=== PATIENT | female | born 1970 | race Caucasian/White ===

== ENCOUNTER 2024-03-15 14:42 | Inpatient (IN) | payer MEDICARE, MEDICAID, SELFPAY ==
[2024-03-15] VITALS (8 sets, daily range): BP systolic 84–141; BP diastolic 62–129; PULSE 69–81; RESP 14–18; TEMP 35.8–36.8; O2SAT 96–100; BMI 27.2
[2024-03-15 15:31] LABS: Absolute Lymphocyte Count 0.85 X10^3/uL (0.83-4.51); Absolute Neutrophil Count 3.4 X10^3/uL (2.0-7.7); Basophil# 0.04 X10^3/uL; Basophil% 0.8 % (0-1); Eosinophil# 0.18 X10^3/uL; Eosinophils% 3.6 % (0-5); Hematocrit 39.9 % (37-47); Hemoglobin 13.6 g/dL (12.0-15.0); Lymphocyte # 0.85 X10^3/ul (0.83-4.51); Lymphocyte % 17.1 % (19-41); Mean Corp Hgb Conc 34.1 g/dL (32-36); Mean Corpuscular Hgb 35.2 pg (27.0-32.0); Mean Corpuscular Volume 103.4 fL (81-99); Mean Platelet Vol. 9.5 fl (6.2-12.0); Monocyte# 0.54 X10^3/uL; Monocyte% 10.8 % (0-10); NRBC Flagged by Analyzer 0 % (0-5); Neutrophil # 3.35 X10^3/uL (2.7-7.7); Neutrophil % 67.3 % (47-70); Platelet Count 114 K/mm3 (150-450); RBC Distribution Width CV 12.8 % (11.6-14.6); RBC Distribution Width SD 48.2 fl (35.1-43.9); Red Blood Count 3.86 M/mm3 (4.2-5.4)
[2024-03-15 15:43] LABS: International Normalized Ratio 1.2; Prothrombin Time (Protime)PT. 14.9 SECONDS (11.7-14.9)
[2024-03-15 15:55] LABS: ALB/GLOB Ratio 1.1 RATIO (0.9-2.4); AST(SGOT) 39 U/L (15-37); Alanine Aminotransfer ALT/SGPT 30 U/L (13-56); Albumin, Serum 3.7 g/dL (3.2-5.0); Alkaline Phosphatase 113 U/L (45-117); Anion Gap 11 (5-15); BUN 8 mg/dL (7-18); BUN/Creat Ratio 6.9 RATIO (10-20); Calcium,Total 8.9 mg/dL (8.5-10.1); Chloride 102 mmol/L (98-107); Creatinine, Serum 1.16 mg/dL (0.55-1.02); EST Glomerular Filtration Rate 52 mL/min (>60); Est Glom Filt Rate - Afr Amer 63 mL/min (>60); Globulin 3.3 g/dL (2.2-4.2); Glucose 115 mg/dL (74-106); Potassium 3.3 mmol/L (3.5-5.1); Sodium Level 136 mmol/L (136-145)
--- NOTE | 2024-03-15 16:03 | EX.ED.SAOD ---
HPI History of Present Illness Chief Complaint: Substance Abuse Informant: patient and family (x2) Narrative Narrative: 53-year-old female here with her family asking for detox from alcohol. Family states has been diagnosed with cirrhosis, she did curb her drinking some but refuses to stop. At this time she is having 2 high alcohol beverages on average per day, usually at nighttime but her last drink was already this morning. She does not wake up in the mornings in withdrawal. She denies any physical symptoms right now or recent illness. She denies any suicidality. No jaundice. She has had a paracentesis once but it was last year. She also has small cell lung cancer the family states is unstageable. She is currently in remission and made it to the 5-year leon. Just recently, they do not know what her prognosis is at all. They suggested that she has remote metastases such as brain that she had radiation for. [facility] Medical History (Updated 03/15/24 @ 16:[address] Mode Tellez MD) HLD (hyperlipidemia) HTN (hypertension) Anxiety and depression Hypothyroidism Small cell carcinoma of right lung COPD (chronic obstructive pulmonary disease) Liver cirrhosis Home Medications ?Medication ?Instructions ?Recorded ?Last Taken ?Type bupropion HCl 150 mg tablet,12 hr 150 mg PO BID 03/15/24 Unknown History sustained-release fluticasone propionate 50 1 spray intranasal BID 03/15/24 Unknown History mcg/actuation nasal spray,suspension furosemide 20 mg tablet 20 mg PO DAILY 03/15/24 Unknown History lactulose 10 gram/15 mL oral 15 ml PO TID 03/15/24 Unknown History solution levothyroxine 75 mcg tablet 75 mcg PO DAILY 03/15/24 Unknown History magnesium 200 mg tablet 400 mg PO DAILY 03/15/24 Unknown History melatonin 10 mg capsule 10 mg PO DAILY 03/15/24 Unknown History potassium chloride 10 mEq 20 meq PO BID 03/15/24 Unknown History tablet,extended release propranolol 20 mg tablet 20 mg PO DAILY 03/15/24 Unknown History rifaximin 550 mg tablet (Xifaxan) 550 mg PO BID 03/15/24 Unknown History sertraline 100 mg tablet 200 mg PO Q24H 03/15/24 Unknown History spironolactone 50 mg tablet 50 mg PO DAILY 03/15/24 Unknown History thiamine HCl (vitamin B1) 100 mg 100 mg PO DAILY 03/15/24 Unknown History tablet umeclidinium 62.5 mcg/actuation 1 inh inhalation DAILY 03/15/24 Unknown History blister powder for inhalation (Incruse Ellipta) Allergy/AdvReac Type Severity Reaction Status Date / Time No Known Allergies Allergy Verified 03/15/24 14:44 Surgical History (Updated 03/15/24 @ 14:57 by Orin Alexandre) Hx of tonsillectomy H/O: hysterectomy Social History Smoking Status: Former smoker ROS ROS ED Constitutional Constitutional ED: Denies chills or fever(s) Eyes Eyes: Denies change in vision or diplopia ENT ENT ED: Denies rhinorrhea or sore throat Cardiovascular Cardiovascular: Denies chest pain or palpitations Respiratory/Chest Respiratory/Chest: Denies cough or dyspnea Gastrointestinal Gastrointestinal: Denies abdominal pain, diarrhea, nausea or vomiting Genitourinary Genitourinary ED: Denies dysuria or hematuria Musculoskeletal Musculoskeletal: Denies back pain or neck pain Integumentary Denies abscess or rash Neurologic Neurologic: Denies headache(s), paresthesias or weakness Psychiatric Psychiatric: Denies suicidal ideation or suicidal thoughts EXAM Physical Exam Const Vital Signs: 03/15/24 14:44 03/15/24 14:44 Temperature 96.5 F L Temperature Source Temporal Pulse Rate 76 76 Respiratory Rate 14 14 Blood Pressure 141/129 H 141/129 H Blood Pressure Mean 133 133 Pulse Ox 100 100 Oxygen Delivery Method Room Air Room Air Positive well nourished and well developed General Appearance ED: well developed and NAD HEENT Reports moist mucous membranes normocephalic and atraumatic Eyes PERRL and EOMs intact bilaterally General Eye ED: Negative for scleral icterus Neck full ROM and supple Lymph Lymphatic: no lymphadenopathy noted Chest Wall inspection of chest normal and palpation of chest normal Resp normal respiratory effort and clear to auscultation bilaterally Cardio regular rate, regular rhythm and no murmurs GI non-tender and non-distended Auscultation: normoactive bowel sounds Palpation: soft Back/Spine no CVA tenderness General Back: other FROM Extremity normal to inspection General Extremety ED: Negative for edema, pulses abnormal or tenderness General Extremity: Negative for edema or pulses abnormal Neuro oriented x3, CN's II-XII intact bilaterally and no sensory deficits noted Sensorium / Orientation: awake and alert Motor Exam: strength 5/5 throughout Psych mental status grossly normal and thought process normal Skin no rashes or lesions noted and no wounds MDM MDM MDM Narrative Medical decision making narrative: Labs reviewed, her INR is within normal limits and she does not have hyper bilirubinemia. She denies any recent hemorrhoids, rectal bleeding, hematemesis to suggest sequela of cirrhosis and she is not jaundiced. Discussed with hospitalist who is amenable to admitting for detox. Lab Data Attestation: I reviewed the patient's lab results. Labs: Laboratory Results - last 24 hr 03/15/24 15:15 WBC 5.0 RBC 3.86 L Hgb 13.6 Hct 39.9 MCV 103.4 H MCH 35.2 H MCHC 34.1 RDW Std Deviation 48.2 H RDW Coeff of Deny 12.8 Plt Count 114 L MPV 9.5 Immature Gran % (Auto) 0.400 Neut % (Auto) 67.3 Lymph % (Auto) 17.1 L [place] % (Auto) 10.8 H Eos % (Auto) 3.6 Baso % (Auto) 0.8 Absolute Neuts (auto) 3.4 Absolute Lymphs (auto) 0.85 Nucleated RBC % 0 PT 14.9 INR 1.2 Sodium 136 Potassium 3.3 L Chloride 102 Carbon Dioxide 23.0 Anion Gap 11 BUN 8 Creatinine 1.16 H Est GFR (MDRD) Af Amer 63 Est GFR (MDRD) Non-Af 52 L BUN/Creatinine Ratio 6.9 L Glucose 115 H Calcium 8.9 Total Bilirubin 0.70 AST 39 H ALT 30 Alkaline Phosphatase 113 Total Protein 7.0 Albumin 3.7 Globulin 3.3 Albumin/Globulin Ratio 1.1 Ethyl Alcohol 107.0 Management Discussion w/another healthcare provider: Hospitalist Discharge Plan Triage Chief Complaint: Substance Abuse ED Provider: Mode Tellez Dx/Rx/DC Orders Clinical Impression: Alcohol dependence, Alcoholic cirrhosis of liver Prescriptions: No Action bupropion HCl 150 mg tablet sustained-release 12 hr 150 mg PO BID levothyroxine 75 mcg tablet 75 mcg PO DAILY furosemide 20 mg tablet 20 mg PO DAILY fluticasone propionate 50 mcg/actuation spray,suspension 1 spray INTRANASAL BID lactulose 10 gram/15 mL solution 15 ml PO TID magnesium 200 mg tablet 400 mg PO DAILY melatonin 10 mg capsule 10 mg PO DAILY potassium chloride 10 mEq tablet extended release 20 meq PO BID propranolol 20 mg tablet 20 mg PO DAILY spironolactone 50 mg tablet 50 mg PO DAILY Xifaxan 550 mg tablet 550 mg PO BID thiamine HCl (vitamin B1) 100 mg tablet 100 mg PO DAILY sertraline 100 mg tablet 200 mg PO Q24H Incruse Ellipta 62.5 mcg/actuation blister with device 1 inh inhalation DAILY Primary Care Provider: Care Physician,No Primary Referrals: Care Physician,No Primary [Primary Care Provider] - Print Language: Telugu Disposition Disposition: Acute Care Hospital [facility]
--- NOTE | 2024-03-15 16:06 | PCM.HP.STD ---
HPI - General General Date of Admission: 03/15/24 Date of Service: 03/15/24 Chief Complaint: EtOH detoxification request HPI Narrative The patient is a 53 y/o F w/ PMHx: Anxiety and Depression, Former tobacco use, COPD with allergic rhinitis, Hx Small cell carcinoma R lung, Hypothyroidism, EtOH abuse w/ associated Alcoholic liver cirrhosis (the equivalent of 4-5 beers daily) who presents to the [facility] on 03/15/24 w/ for alcohol detoxification with last alcohol intake prior to ED arrival with currently no withdrawal symptoms reported per patient however she is interested in attaining sober status. Workup in the ED included T96.5, heart rate 76, BP 141/129, respiratory rate 14, 100% on room air, CBC with WBC 5.0, hemoglobin 13.6, platelet 114 without marked shift, pending CMP, of alcohol level, UDS and coags upon evaluation of patient. Patient does admit to persistent anxiety and depression and ongoing alcohol use secondary to psychological difficulty dealing with the of both of her parents. [facility] Medical History HLD (hyperlipidemia) HTN (hypertension) Anxiety and depression Hypothyroidism Small cell carcinoma of right lung COPD (chronic obstructive pulmonary disease) Liver cirrhosis Home Medications ?Medication ?Instructions ?Recorded ?Last Taken ?Type bupropion HCl 150 mg tablet,12 hr 150 mg PO BID mood 03/15/24 03/15/24 History sustained-release fluticasone propionate 50 1 spray intranasal BID allergies 03/15/24 03/15/24 History mcg/actuation nasal spray,suspension furosemide 20 mg tablet 20 mg PO DAILY water pills 03/15/24 03/15/24 History lactulose 10 gram/15 mL oral 15 ml PO TID constipation 03/15/24 03/15/24 History solution levothyroxine 75 mcg tablet 75 mcg PO DAILY thyroid 03/15/24 03/15/24 History magnesium 200 mg tablet 400 mg PO DAILY supplement 03/15/24 03/15/24 History melatonin 10 mg capsule 10 mg PO DAILY sleep 03/15/24 03/15/24 History pantoprazole 40 mg tablet,delayed 40 mg PO DAILY acid reflux 03/15/24 03/15/24 History release potassium chloride 10 mEq 20 meq PO BID supplement 03/15/24 03/15/24 History tablet,extended release propranolol 20 mg tablet 20 mg PO DAILY blood pressure 03/15/24 03/15/24 History rifaximin 550 mg tablet (Xifaxan) 550 mg PO BID diarrhea 03/15/24 03/15/24 History sertraline 100 mg tablet 200 mg PO Q24H mood 03/15/24 03/15/24 History spironolactone 50 mg tablet 50 mg PO DAILY fluid retention 03/15/24 03/15/24 History thiamine HCl (vitamin B1) 100 mg 100 mg PO DAILY supplement 03/15/24 03/15/24 History tablet umeclidinium 62.5 mcg/actuation 1 inh inhalation DAILY shortness 03/15/24 03/15/24 History blister powder for inhalation of breathe (Incruse Ellipta) Allergy/AdvReac Type Severity Reaction Status Date / Time No Known Allergies Allergy Verified 03/15/24 14:44 Family History (Updated 03/15/24 @ 16:[address] Sunni Dutton MD) Mother Diabetes Metastatic melanoma to head and neck Father Walking corpse syndrome Surgical History Hx of tonsillectomy H/O: hysterectomy Social History (Updated 03/15/24 @ 16:[address] Sunni Dutton MD) household members: family Smoking Status: Former smoker how long ago did patient quit smoking: Quit 5 yrs prior, smoked 1 ppd from teen until quit. alcohol intake: current alcohol intake frequency: 3 or more drinks per day details: Equivalent 4-5 beers daily, decreased from prior. substance use type: other details: Medical cannabis, smokes. ROS ROS Narrative Admission Review of Systems: CONSTITUTIONAL: No weight loss, fever, chills, + weakness or fatigue. HEENT: Eyes: No visual loss, blurred vision, double vision or yellow sclerae. Ears, Nose, Throat: No hearing loss, sneezing, congestion, runny nose or sore throat. SKIN: No rash or itching, lesions, wounds. CARDIOVASCULAR: No chest pain, chest pressure or chest discomfort, palpitations, edema, orthopnea, syncopal events. RESPIRATORY: No shortness of breath, cough or sputum, wheezing, hemoptysis. GASTROINTESTINAL: No anorexia, nausea, vomiting or diarrhea, abdominal pain, melena, BRBPR. GENITOURINARY: No dysuria, frequency, urgency or retention. NEUROLOGICAL: No headache, dizziness, syncope, paralysis, ataxia, numbness or tingling in the extremities, focal weakness, change in bowel or bladder control, seizure. MUSCULOSKELETAL: + muscle, back pain, joint pain or stiffness. HEMATOLOGIC: No anemia. + Easy bleeding/bruising. LYMPHATICS: No enlarged nodes. No history of splenectomy. PSYCHIATRIC: + History of anxiety and depression. ENDOCRINOLOGIC: No reports of sweating, cold or heat intolerance. No polyuria or polydipsia. ALLERGIES: + History of allergic rhinitis. Vital Signs Vital Signs Vital Signs: 03/15/24 14:44 03/15/24 14:44 Temperature 96.5 F L Temperature Source Temporal Pulse Rate 76 76 Respiratory Rate 14 14 Blood Pressure 141/129 H 141/129 H Blood Pressure Mean 133 133 Pulse Ox 100 100 Oxygen Delivery Method Room Air Room Air Physical Exam Narrative Physical Examination: General: Awake, alert, oriented x 3 and cooperative, seated upright in the ED bed in no apparent distress, no active withdrawal. Skin: Normal color, normal turgor, no icterus, no cyanosis except occasional staged ecchymoses. HEENT: AT/NC, EOMI, PERRLA, MMM, no carotid bruits or JVD noted. Lungs: CTA bilaterally, moderate effort, mild decrease BL bases, no rales, ronchi or wheezing. Heart: Regular rate and rhythm; no gallop, rub audible. Abdomen: Soft, NTTP, ND, mildly hyperactive BS, + HM. Extremities: No cyanosis, clubbing, or edema. Neurological: Patient awake, alert, oriented as noted, cognitive function intact; pupils equally reactive to light and accommodation, cranial nerves grossly normal, moving all 4 extremities, no focal deficits, strength mildly to moderately globally decreased which is baseline, no reported tactile disturbances, no evidence of any tremors at this time. Psychiatric: Affect appears fatigued, tearful during discussions, does have underlying anxiety and depression. Results Lab / Micro Data 03/15/24 15:15 03/15/24 15:15 Labs: Laboratory Results - last 24 hr 03/15/24 15:15: WBC 5.0, RBC 3.86 L, Hgb 13.6, Hct 39.9, MCV 103.4 H, MCH 35.2 H, MCHC 34.1, RDW Std Deviation 48.2 H, RDW Coeff of Deny 12.8, Plt Count 114 L, MPV 9.5, Immature Gran % (Auto) 0.400, Neut % (Auto) 67.3, Lymph % (Auto) 17.1 L, [place] % (Auto) 10.8 H, Eos % (Auto) 3.6, Baso % (Auto) 0.8, Absolute Neuts (auto) 3.4, Absolute Lymphs (auto) 0.85, Nucleated RBC % 0, PT 14.9, INR 1.2, Sodium 136, Potassium 3.3 L, Chloride 102, Carbon Dioxide 23.0, Anion Gap 11, BUN 8, Creatinine 1.16 H, Est GFR (MDRD) Af Amer 63, Est GFR (MDRD) Non-Af 52 L, BUN/Creatinine Ratio 6.9 L, Glucose 115 H, Calcium 8.9, Total Bilirubin 0.70, AST 39 H, ALT 30, Alkaline Phosphatase 113, Total Protein 7.0, Albumin 3.7, Globulin 3.3, Albumin/Globulin Ratio 1.1, Ethyl Alcohol 107.0 Assessment & Plan Assessment/Plan (1) Desire for detoxification: PLAN: Plan The patient is a 53 y/o F w/ PMHx: Anxiety and Depression, Former tobacco use, COPD with allergic rhinitis, Hx Small cell carcinoma R lung, Hypothyroidism, EtOH abuse w/ associated Alcoholic liver cirrhosis (2-3 drinks per day with high etoh %) who presents to the [facility] on 03/15/24 w/ for alcohol detoxification with last alcohol intake prior to ED arrival. #1. Acute EtOH Withdrawal: Will admit to MI, routine labs obtained in the ED upon presentation as noted. Given interest in sobriety, will initiate and continue on protocol with taper course of Phenobarbital, as needed gabapentin, Catapres, Bentyl, Vistaril, IV fluids, IV antiemetics, Tylenol as needed for pain. Will consult Case management for assistance for transition to next level of rehabilitation care. Mag, phos pending. Maintain on CIWA protocol concurrently. #2. Alcoholic cirrhosis, compensated with thrombocytopenia, suspected chronic: Encourage patient to continue with plan as noted #1, continue patient home rifaximin, lactulose, propranolol, Lasix and spironolactone home regimen, encourage continued outpatient follow-up with gastroenterology as previously arranged. #3. Chronic COPD with allergic rhinitis: Will temporally hold home inhaler in the interim transition to ATC budesonide therapy, PRN albuterol, HOB, IS parameters, continue home fluticasone regimen. #4. Hx Small cell carcinoma R lung: Status post radiation and chemotherapy, considered in remission, encourage continued outpatient follow-up as previously arranged. #5. Hypertension: Continue home regimen including Lasix, spironolactone, propranolol, PRN hydralazine. #6. Hyperlipidemia: Not on regimen with underlying cirrhotic liver disease is noted. #7. Anxiety and depression: We will continue patient home sertraline and bupropion regimen. #8. Hypothyroidism: We will continue patient on levothyroxine regimen. #9. Former tobacco Abuse: Encourage continued tobacco cessation. #10. DVT prophylaxis: Low risk for type of admission. Charges/Coding Visit Charges Inpatient E&M: 15412 Init Hosp L2
[2024-03-15 16:42] LABS: Magnesium 2.1 mg/dL (1.6-2.6); Phosphorus 2.4 mg/dL (2.5-4.9)
[2024-03-15 16:59] LABS: Amphetamine Urine VISTA NEGATIVE (<1000 ng/mL); Barbiturate Urine VISTA NEGATIVE (< 200 ng/mL); Benzodiazepine Urine VISTA NEGATIVE (< 200 ng/mL); Cocaine Urine VISTA NEGATIVE (< 300 ng/mL); Ecstacy Urine VISTA POSITIVE (< 500 ng/mL); Methadone Urine VISTA NEGATIVE (< 300 ng/mL); PCP Urine VISTA NEGATIVE (< 25 ng/mL); THC Urine VISTA POSITIVE (< 50 ng/mL); Vista UDS pH Range 6
--- NOTE | 2024-03-15 17:12 | ED.RN ---
pt. daughter took home ptVy kern per patient request
[2024-03-15] MEDS: Phenobarbital 32.4 MG Tablet PO ×2 (17:46→22:27)
[2024-03-15] MEDS: Potassium Chloride Oral Tablet 20 MEQ 40 MEQ PO (17:46)
[2024-03-15] MEDS: Budesonide Respules 0.5 MG/2 ML AMPUL.NEB. INHALATION (19:56)
[2024-03-15] MEDS: 0.9% Saline Lock 10 ML Syringe IV (22:26)
[2024-03-15] MEDS: Fluticasone 0.05% 1 SPRAY NASAL.SRY NASAL (22:29)
[2024-03-15] MEDS: buPROPion (SR) 150 MG Tablet.SA PO (22:31)
[2024-03-15] MEDS: Lactulose 20 GM/30 ML UDC 10 GM PO (22:32)
[2024-03-15] MEDS: rifAXIMin 550 MG Tablet PO (22:32)
[2024-03-15] MEDS: traZODone 100 MG Tablet PO (22:38)
[2024-03-16] VITALS (9 sets, daily range): BP systolic 96–125; BP diastolic 66–79; PULSE 65–77; RESP 16–18; TEMP 36.2–36.8; O2SAT 93–100
[2024-03-16] MEDS: Phenobarbital 32.4 MG Tablet PO ×6 (02:06→22:07)
[2024-03-16] MEDS: Levothyroxine 75 MCG Tablet PO (06:23)
[2024-03-16] MEDS: Lactulose 20 GM/30 ML UDC 10 GM PO ×3 (06:24→22:07)
[2024-03-16] MEDS: hydrOXYzine PAM 25 MG Capsule 50 MG PO (06:25)
[2024-03-16 06:56] LABS: AST(SGOT) 37 U/L (15-37); Alanine Aminotransfer ALT/SGPT 27 U/L (13-56); Alkaline Phosphatase 102 U/L (45-117); Anion Gap 4 (5-15); BUN 7 mg/dL (7-18); BUN/Creat Ratio 6.4 RATIO (10-20); Calcium,Total 8.4 mg/dL (8.5-10.1); Chloride 105 mmol/L (98-107); Creatinine, Serum 1.09 mg/dL (0.55-1.02); EST Glomerular Filtration Rate 56 mL/min (>60); Est Glom Filt Rate - Afr Amer 67 mL/min (>60); Estimated Creatinine Clearance 57.37 ml/min; Globulin 2.9 g/dL (2.2-4.2); Glucose 89 mg/dL (74-106); Potassium 4.2 mmol/L (3.5-5.1); Protein, Total 5.9 g/dL (6.4-8.2); Sodium Level 136 mmol/L (136-145)
[2024-03-16] MEDS: Ensure Plus High Protein 120 ML LIQUID PO ×2 (08:47→11:54)
[2024-03-16] MEDS: Fluticasone 0.05% 1 SPRAY NASAL.SRY NASAL ×2 (08:48→22:08)
[2024-03-16] MEDS: rifAXIMin 550 MG Tablet PO ×2 (08:48→22:08)
[2024-03-16] MEDS: Multivitamins,Ther W-Minerals Tablet 1 TABLET PO (08:48)
[2024-03-16] MEDS: Folic Acid 1 MG Tablet PO (08:49)
[2024-03-16] MEDS: buPROPion (SR) 150 MG Tablet.SA PO ×2 (08:49→22:08)
[2024-03-16] MEDS: Potassium Chloride Oral Tablet 20 MEQ PO ×2 (08:49→16:29)
[2024-03-16] MEDS: Magnesium Chloride 64 MG Delay Rel.Tablet 128 MG PO (08:49)
[2024-03-16] MEDS: Thiamine Hydrochloride 100 MG Tablet PO (08:52)
[2024-03-16] MEDS: Sertraline 100 MG Tablet 200 MG PO (08:52)
[2024-03-16] MEDS: Budesonide Respules 0.5 MG/2 ML AMPUL.NEB. INHALATION ×2 (11:19→19:55)
--- NOTE | 2024-03-16 11:53 | PN_ITS ---
Subjective Subjective Patient seen and examined. She had no complaints. She is being managed for acute alcohol withdrawal. She is on alcohol drawl protocol with phenobarbital. She has remained hemodynamically stable. Objective Data Objective Data Vital Signs: Vital Signs Temp Pulse Resp BP Pulse Ox O2 Del Method 97.9 F 77 18 96/79 100 Room Air 03/16/24 08:36 03/16/24 11:19 03/16/24 11:19 03/16/24 08:36 03/16/24 08:36 03/16/24 08:36 Oxygen Delivery Method Room Air Weight: 158 lb 9.6 oz Body Mass Index (BMI) 27.2 Intake & Output: Intake and Output for Last 24 Hours 03/14/24 03/15/24 03/16/24 23:59 23:59 23:59 Intake Total 300 / 300 400 / 400 Balance 300 / 300 400 / 400 Lab / Micro Data 03/15/24 15:15 03/16/24 06:05 Labs: Laboratory Results - last 24 hr 03/15/24 15:15: WBC 5.0, RBC 3.86 L, Hgb 13.6, Hct 39.9, MCV 103.4 H, MCH 35.2 H , MCHC 34.1, RDW Std Deviation 48.2 H, RDW Coeff of Deny 12.8, Plt Count 114 L, MPV 9.5, Immature Gran % (Auto) 0.400, Neut % (Auto) 67.3, Lymph % (Auto) 17.1 L , [place] % (Auto) 10.8 H, Eos % (Auto) 3.6, Baso % (Auto) 0.8, Absolute Neuts (auto) 3.4, Absolute Lymphs (auto) 0.85, Nucleated RBC % 0, PT 14.9, INR 1.2, Sodium 136, Potassium 3.3 L, Chloride 102, Carbon Dioxide 23.0, Anion Gap 11, BUN 8, Creatinine 1.16 H, Est GFR (MDRD) Af Amer 63, Est GFR (MDRD) Non-Af 52 L, BUN/Creatinine Ratio 6.9 L, Glucose 115 H, Calcium 8.9, Phosphorus 2.4 L, Magnesium 2.1, Total Bilirubin 0.70, AST 39 H, ALT 30, Alkaline Phosphatase 113, Total Protein 7.0, Albumin 3.7, Globulin 3.3, Albumin/Globulin Ratio 1.1, Ethyl Alcohol 107.0 03/15/24 16:17: Urine Opiates Screen NEGATIVE, Urine Methadone Screen NEGATIVE, Ur Barbiturates Screen NEGATIVE, Ur Phencyclidine Scrn NEGATIVE, Ur Amphetamines Screen NEGATIVE, MDMA (Ecstasy) Screen POSITIVE H, U Benzodiazepines Scrn NEGATIVE, Urine Cocaine Screen NEGATIVE, U Cannabinoids Screen POSITIVE H, Ur Drug Screen Comment 03/16/24 06:05: Sodium 136, Potassium 4.2, Chloride 105, Carbon Dioxide 27.0, A nion Gap 4 L, BUN 7, Creatinine 1.09 H, Estim Creat Clear Calc 57.37, Est GFR (MDRD) Af Amer 67, Est GFR (MDRD) Non-Af 56 L, BUN/Creatinine Ratio 6.4 L, Glucose 89, Calcium 8.4 L, Total Bilirubin 0.50, AST 37, ALT 27, Alkaline Phosphatase 102, Total Protein 5.9 L, Albumin 3.0 L, Globulin 2.9, Albumin/Globulin Ratio 1.0 Physical Exam Const alert, oriented x3, no apparent distress and well nourished General Appearance: cooperative HEENT normocephalic, head/scalp atraumatic, moist oral mucous membranes and oropharynx normal Eyes PERRL and EOMs intact bilaterally Neck no lymphadenopathy and supple Lymph Lymphatic: no lymphadenopathy noted and no lymphedema noted Resp normal respiratory effort, normal air movement and clear to auscultation bilaterally Cardio regular rate, regular rhythm, S1 normal heart sound, S2 normal heart sound and no murmurs GI normal to inspection, nondistended, normoactive bowel sounds, soft to palpation, non-tender and non-distended Extremity normal capillary refill, no clubbing, cyanosis or edema and no calf tenderness General Extremity: no tenderness to palpation of joints or extremities Skin General Skin Exam: no breakdown Neuro CN's II-XII intact bilaterally, no focal motor deficits, no sensory deficits noted and deep tendon reflexes 2+ bilaterally Motor Exam: strength 5/5 throughout and general weakness Psych thought process normal and cooperative Appearance: appropriate Assessment & Plan Assessment/Plan (1) Desire for detoxification: (2) Alcohol dependence: PLAN: Plan #Acute alcohol withdrawal * patient on alcohol withdrawal protocol with phenbarbital * on thiamine, folic acid and multivites. * adjunctive meds for symptomatic relief. * #Alcoholic liver cirrhosis * on rifaximin, lactulose, propranolol, lasix and spironolactone. * to follow up with GI on outpatient basis. Counseled to quit smoking. * * #THrombocytopenia: platelets are 114. Likely chronic, due to chronic alcohol abuse and cirrhosis. Will monitor #COPD with allergic rhinitis: on breathing treatment with bronchodilators. #History of small cell right lung carcinoma: s/p radiation and chemotherapy. #Hypertension; on lasix, spironolactone and propranolol. IV hydralazine prn #Hyperlipidemia: not on statin. Follow up with PCP on outpatient basis. #Anxiety and depression: on sertraline and bupropion #Hypothyroidism:on synthroid. #Nicotine dependence: counseled to quit. On nicotine patch prn DVT prophylaxis: low risk. Encourage ambulation. Charges/Coding Visit Charges Inpatient E&M: 29681 Subs Hosp L3
--- NOTE | 2024-03-16 14:20 | ADDICTION ---
This marketing copywriter met with PT to conduct ASAM, MSE, AUDIT, DUDIT assessments and to plan for d/c. PT A+Ox4 and participated actively. All assessments completed and placed in PT's chart. PT plans to f/u with [facility] for follow-up in patient treatment services on Monday. Pt's daughter will transport to treatment.
[2024-03-16] MEDS: 0.9% Saline Lock 10 ML Syringe IV (22:06)
[2024-03-16] MEDS: MELATONIN 10 MG TABLET PO (22:08)
[2024-03-17] VITALS (10 sets, daily range): BP systolic 94–133; BP diastolic 61–82; PULSE 64–80; RESP 16–20; TEMP 36.4–36.9; O2SAT 97–100
[2024-03-17] MEDS: Phenobarbital 32.4 MG Tablet PO ×4 (02:40→21:52)
[2024-03-17] MEDS: Lactulose 20 GM/30 ML UDC 10 GM PO ×3 (06:37→21:51)
[2024-03-17] MEDS: Levothyroxine 75 MCG Tablet PO (06:44)
[2024-03-17] MEDS: Budesonide Respules 0.5 MG/2 ML AMPUL.NEB. INHALATION (07:35)
[2024-03-17] MEDS: rifAXIMin 550 MG Tablet PO ×2 (08:18→21:52)
[2024-03-17] MEDS: Magnesium Chloride 64 MG Delay Rel.Tablet 128 MG PO (08:18)
[2024-03-17] MEDS: Ensure Plus High Protein 120 ML LIQUID PO ×2 (08:18→11:23)
[2024-03-17] MEDS: Fluticasone 0.05% 1 SPRAY NASAL.SRY NASAL ×2 (08:19→21:51)
[2024-03-17] MEDS: Thiamine Hydrochloride 100 MG Tablet PO (08:19)
[2024-03-17] MEDS: Sertraline 100 MG Tablet 200 MG PO (08:20)
[2024-03-17] MEDS: Folic Acid 1 MG Tablet PO (08:20)
[2024-03-17] MEDS: Multivitamins,Ther W-Minerals Tablet 1 TABLET PO (08:21)
[2024-03-17] MEDS: Potassium Chloride Oral Tablet 20 MEQ PO ×2 (08:31→17:18)
[2024-03-17] MEDS: Furosemide 20 MG Tablet PO (08:32)
[2024-03-17] MEDS: buPROPion (SR) 150 MG Tablet.SA PO ×2 (08:33→21:52)
--- NOTE | 2024-03-17 09:39 | PN_ITS ---
Subjective Subjective Patient seen and examined. She had no active complaints. She had an uneventful night and review of systems otherwise negative. Her blood pressure medications were held yesterday because her blood pressure was running low. However in light of her cirrhosis her blood pressure will likely run low. Objective Data Objective Data Vital Signs: Vital Signs Temp Pulse Resp BP Pulse Ox O2 Del Method 97.5 F L 74 18 109/61 99 Room Air 03/17/24 08:30 03/17/24 08:30 03/17/24 08:30 03/17/24 08:30 03/17/24 08:30 03/17/24 08:30 Oxygen Delivery Method Room Air Weight: 158 lb 9.6 oz Body Mass Index (BMI) 27.2 Intake & Output: Intake and Output for Last 24 Hours 03/15/24 03/16/24 03/17/24 23:59 23:59 23:59 Intake Total 300 / 300 600 / 600 300 / 300 Balance 300 / 300 600 / 600 300 / 300 Lab / Micro Data 03/15/24 15:15 03/16/24 06:05 Physical Exam Const alert, oriented x3, no apparent distress and well nourished General Appearance: cooperative HEENT normocephalic, head/scalp atraumatic, moist oral mucous membranes and oropharynx normal Eyes PERRL and EOMs intact bilaterally Neck no lymphadenopathy and supple Lymph Lymphatic: no lymphadenopathy noted and no lymphedema noted Resp normal respiratory effort, normal air movement and clear to auscultation bilaterally Cardio regular rate, regular rhythm, S1 normal heart sound, S2 normal heart sound and no murmurs GI normal to inspection, nondistended, normoactive bowel sounds, soft to palpation, non-tender and non-distended Extremity normal capillary refill, no clubbing, cyanosis or edema and no calf tenderness General Extremity: no tenderness to palpation of joints or extremities Skin General Skin Exam: no breakdown Neuro CN's II-XII intact bilaterally, no focal motor deficits, no sensory deficits noted and deep tendon reflexes 2+ bilaterally Motor Exam: strength 5/5 throughout and general weakness Psych thought process normal and cooperative Appearance: appropriate Assessment & Plan Assessment/Plan (1) Desire for detoxification: (2) Alcohol dependence: PLAN: Plan #Acute alcohol withdrawal * patient on alcohol withdrawal protocol with phenbarbital * on thiamine, folic acid and multivites. * adjunctive meds for symptomatic relief. * #Alcoholic liver cirrhosis * on rifaximin, lactulose, propranolol, lasix and spironolactone. * to follow up with GI on outpatient basis. Counseled to quit smoking. * * #THrombocytopenia: platelets are 114. Likely chronic, due to chronic alcohol abuse and cirrhosis. Will monitor #COPD with allergic rhinitis: on breathing treatment with bronchodilators. #History of small cell right lung carcinoma: s/p radiation and chemotherapy. #Hypertension; on lasix, spironolactone and propranolol. IV hydralazine prn #Hyperlipidemia: not on statin. Follow up with PCP on outpatient basis. #Anxiety and depression: on sertraline and bupropion #Hypothyroidism:on synthroid. #Nicotine dependence: counseled to quit. On nicotine patch prn DVT prophylaxis: low risk. Encourage ambulation. Charges/Coding Visit Charges Inpatient E&M: 93372 Subs Hosp L2
--- NOTE | 2024-03-17 10:17 | NURSING ---
This nurse was called into pt's room by charge nurse, CUSTOMS EXAMINER found pt on the bathroom floor, she had instructed her to call for assistance, not to get up on her own. pt denies bumping her head or any other part of her body. She was assisted back to bed x 3 assist and walker, was unable to put weight on her rt leg. pt rambles quietly to herself at times, and her answers to staff are not cohesive. States she is at [facility], and it is Monday, and states it is February and the season is spring. Will notify Dr. Mcbride.
--- NOTE | 2024-03-17 14:31 | RAD_ITS ---
EXAM: XR RIGHT HIP WITH PELVIS WHEN PERFORMED, 2 OR 3 VIEWS CLINICAL INDICATION: unsteady gait and pain -- Call results to Dr Mcbride TECHNIQUE: Two or three views of the right hip with pelvis when performed. COMPARISON: No relevant prior studies available. FINDINGS: BONES/JOINTS: Unremarkable. No displaced fracture. No destructive or sclerotic lesions. Note that overlapping bowel shadows may however obscure fine detail. Sacroiliac joint is unremarkable. No widening of the pubic symphysis. The articular structures are unremarkable. SOFT TISSUES: Unremarkable. No soft tissue swelling or gas. RAD/HIP, UNI W/ Pelvis 2-3 Views IMPRESSION: No evidence of displaced pelvic or hip fracture. Electronically Signed: Dann Crisostomo MD at 15:27 EDT Reading Location ID and State: [facility] / [place] , Service support ,
--- NOTE | 2024-03-17 14:31 | RAD_ITS ---
EXAM: XR RIGHT TIBIA AND FIBULA, 2 VIEWS CLINICAL INDICATION: unsteady and pain -- call Dr. Mcbride with the results please. TECHNIQUE: Frontal and lateral views of the right tibia and fibula. COMPARISON: No relevant prior studies available. FINDINGS: BONES/JOINTS: Unremarkable. No acute fracture. No subluxation. Normal alignment. Preservation of the joint space. No sclerotic or destructive changes observed. SOFT TISSUES: Unremarkable. No soft tissue swelling or gas. No radiopaque foreign body. RAD/Tibia & Fibula 2 Views IMPRESSION: Negative right tibia and fibula x-rays. Electronically Signed: Dann Crisostomo MD at 15:23 EDT ,
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
[2024-03-17] MEDS: MELATONIN 10 MG TABLET PO (21:51)
[2024-03-17] MEDS: 0.9% Saline Lock 10 ML Syringe IV (21:55)
[2024-03-18 03:06] VITALS: BP 122/82; PULSE 82; RESP 16; TEMP 36.9; O2SAT 100
[2024-03-18] MEDS: Phenobarbital 32.4 MG Tablet PO ×4 (03:11→22:55)
[2024-03-18] MEDS: Levothyroxine 75 MCG Tablet PO (06:37)
[2024-03-18] MEDS: Lactulose 20 GM/30 ML UDC 10 GM PO ×3 (06:37→22:55)
[2024-03-18 06:55] VITALS: PULSE 80; RESP 16; O2SAT 91
[2024-03-18] MEDS: Budesonide Respules 0.5 MG/2 ML AMPUL.NEB. INHALATION (06:55)
[2024-03-18 09:06] VITALS: BP 108/70; PULSE 80; RESP 18; TEMP 37.3; O2SAT 96
[2024-03-18] MEDS: hydrOXYzine PAM 25 MG Capsule 50 MG PO (09:35)
[2024-03-18] MEDS: Acetaminophen 325 MG Tablet 650 MG PO (09:35)
[2024-03-18] MEDS: 0.9% Saline Lock 10 ML Syringe IV (09:35)
[2024-03-18] MEDS: Potassium Chloride Oral Tablet 20 MEQ PO ×2 (09:36→18:25)
[2024-03-18] MEDS: Folic Acid 1 MG Tablet PO (09:36)
[2024-03-18] MEDS: Thiamine Hydrochloride 100 MG Tablet PO (09:37)
[2024-03-18] MEDS: Fluticasone 0.05% 1 SPRAY NASAL.SRY NASAL ×2 (09:37→22:57)
[2024-03-18] MEDS: Multivitamins,Ther W-Minerals Tablet 1 TABLET PO (09:37)
[2024-03-18] MEDS: Spironolactone 50 MG Tablet PO (09:37)
[2024-03-18] MEDS: Furosemide 20 MG Tablet PO (09:38)
[2024-03-18] MEDS: Sertraline 100 MG Tablet 200 MG PO (09:38)
[2024-03-18] MEDS: Propranolol 10 MG Tablet 20 MG PO (09:38)
[2024-03-18] MEDS: Magnesium Chloride 64 MG Delay Rel.Tablet 128 MG PO (09:38)
[2024-03-18] MEDS: rifAXIMin 550 MG Tablet PO ×2 (09:38→22:56)
[2024-03-18] MEDS: buPROPion (SR) 150 MG Tablet.SA PO ×2 (09:46→22:56)
--- NOTE | 2024-03-18 10:29 | DCINST_ITS ---
Discharge Instructions Diet Discharge Diet: Low fat / Low cholesterol Activity Discharge Activity: Return to Normal Activity Dressing / Incision Call your doctor if you observe: Fever of 101 or Higher, Shortness of breath, Dizziness, Fainting spells, Swelling in the ankles, Chest pain and Increased palpitations (irregular heartbeat) Follow Up Care Test Results: Test results from this visit will be discussed in further detail at your follow- up appointment, if applicable. Discharge Plan Admission Admit Date/Time: 03/15/24 16:08 Attending Provider: Sukhi Tang Primary Care Provider: Luisa Hansen Primary Consulting Providers: Sunni Dutton; Dejah Mcbride Discharge Orders/Prescriptions Prescriptions: New folic acid 1 mg Tablet 1 mg PO DAILYCM 30 Days Qty: 30 0RF Continued bupropion HCl 150 mg tablet sustained-release 12 hr 150 mg PO BID levothyroxine 75 mcg tablet 75 mcg PO DAILY furosemide 20 mg tablet 20 mg PO DAILY fluticasone propionate 50 mcg/actuation spray,suspension 1 spray INTRANASAL BID lactulose 10 gram/15 mL solution 15 ml PO TID magnesium 200 mg tablet 400 mg PO DAILY melatonin 10 mg capsule 10 mg PO DAILY potassium chloride 10 mEq tablet extended release 20 meq PO BID propranolol 20 mg tablet 20 mg PO DAILY spironolactone 50 mg tablet 50 mg PO DAILY Xifaxan 550 mg tablet 550 mg PO BID thiamine HCl (vitamin B1) 100 mg tablet 100 mg PO DAILY sertraline 100 mg tablet 200 mg PO Q24H Incruse Ellipta 62.5 mcg/actuation blister with device 1 inh inhalation DAILY pantoprazole 40 mg tablet,delayed release (DR/EC) 40 mg PO DAILY Referrals / Follow Up: Care Physician,No Primary [Primary Care Provider] - Disposition Disposition (needs filled in before D/C Order can be placed): Home, Self Care
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
--- NOTE | 2024-03-18 13:11 | DS.PCM_ITS ---
Providers Date of Admission: 03/15/24 Primary Care Physician: Luisa Primary Care Phys Reason For Visit: ETOH DETOXIFICATION Diagnosis Discharge Diagnosis (1) Desire for detoxification: Status: Acute (2) Alcohol dependence: Status: Acute Code(s): F10.20 - Alcohol dependence, uncomplicated Medications at Discharge Home Medications bupropion HCl 150 mg tablet,12 hr sustained-release 150 mg PO BID mood 03/15/24 fluticasone propionate 50 mcg/actuation nasal spray,suspension 1 spray intranasal BID allergies 03/15/24 furosemide 20 mg tablet 20 mg PO DAILY water pills 03/15/24 lactulose 10 gram/15 mL oral solution 15 ml PO TID constipation 03/15/24 levothyroxine 75 mcg tablet 75 mcg PO DAILY thyroid 03/15/24 magnesium 200 mg tablet 400 mg PO DAILY supplement 03/15/24 melatonin 10 mg capsule 10 mg PO DAILY sleep 03/15/24 pantoprazole 40 mg tablet,delayed release 40 mg PO DAILY acid reflux 03/15/24 potassium chloride 10 mEq tablet,extended release 20 meq PO BID supplement 03/15/24 propranolol 20 mg tablet 20 mg PO DAILY blood pressure 03/15/24 rifaximin 550 mg tablet (Xifaxan) 550 mg PO BID diarrhea 03/15/24 sertraline 100 mg tablet 200 mg PO Q24H mood 03/15/24 spironolactone 50 mg tablet 50 mg PO DAILY fluid retention 03/15/24 thiamine HCl (vitamin B1) 100 mg tablet 100 mg PO DAILY supplement 03/15/24 umeclidinium 62.5 mcg/actuation blister powder for inhalation (Incruse Ellipta) 1 inh inhalation DAILY shortness of breathe 03/15/24 folic acid 1 mg tablet 1 mg PO DAILYCM 30 days #30 tabs 03/18/24 Hospital Course Operations None Procedures None Summary of Care Provided Minutes Spent on Discharge: 33 Hospital Course: Per HPI: The patient is a 53 y/o F w/ PMHx: Anxiety and Depression, Former tobacco use, COPD with allergic rhinitis, Hx Small cell carcinoma R lung, Hypothyroidism, EtOH abuse w/ associated Alcoholic liver cirrhosis (the equivalent of 4-5 beers daily) who presents to the [facility] on 03[facility]24 w/ for alcohol detoxification with last alcohol intake prior to ED arrival with currently no withdrawal symptoms reported per patient however she is interested in attaining sober status. Workup in the ED included T96.5, heart rate 76, BP 141/129, respiratory rate 14, 100% on room air, CBC with WBC 5.0, hemoglobin 13.6, platelet 114 without marked shift, pending CMP, of alcohol level, UDS and coags upon evaluation of patient. Patient does admit to persistent anxiety and depression and ongoing alcohol use secondary to psychological difficulty dealing with the of both of her parents. Hospital Course: 1. Acute alcohol withdrawal with alcoholic liver cirrhosis?53-year-old female presented to the hospital requesting detox. At the time she was not having any withdrawal-like symptoms. She was started on the alcohol withdrawal protocol which she tolerated fairly well, she did have some somnolence due to medications however this resolved fairly quickly. She was continued on all of her home medications including Xifaxan, lactulose, propranolol, Lasix, Aldactone that she should be taking at home for her alcoholic liver cirrhosis. Her thrombocytopenia is chronic and she does have a history of small cell right lung cancer?status postradiation and chemotherapy that she will need outpatient follow-up for. I discussed with her the possibility for discharge today as she was set up [facility] [employer]. I discussed with her the possibility of discharge today as her CIWA scores were only up to versus staying another day to complete more of the detox protocol, she expressed understanding the risk benefits of going home and would like to go home today. 2. COPD, hypothyroidism, GERD, anxiety, depression, essential hypertension, hyperlipidemia are chronic medical conditions which complicate her care. Her home medications were continued where appropriate Physical Exam Narrative General: Alert, Oriented x3, Cooperative, No apparent distress HEENT: Atraumatic, PERRLA, EOMI, Normocephalic Oral: Moist Mucosa Neck: Supple, No JVD Lungs: Diminished, Normal air movement, No rhonchi, No wheeze, No rales Cardiovascular: Regular rate, Regular Rhythm, Normal S1, Normal S2, No murmurs Abdomen: Soft, Non Tender, Non-Distended, No Hepato-splenomegaly Extremities: No edema, Capillary Refill Less than 3 Seconds Skin: No rashes, No breakdown Musculoskeletal: No Tenderness to Palpation of Joints or Extremities Neurological: No focal neurological deficits, Motor Exam 5/5 strength throughout, Sensory exam intact to light touch and pain Psych/Mental Status: Normal Affect, Appropriate Weight / BMI Weight Weight: 158 lb 9.6 oz Body Mass Index (BMI) 27.2 ABG / Lab / Microbiology Data 03/15/24 15:15 03/16/24 06:05 Radiography Diagnostic Testing: Radiology Impression Hip/Pelvis X-Ray 03/17/24 14:31 IMPRESSION: No evidence of displaced pelvic or hip fracture. Electronically Signed: Dann Crisostomo MD at 15:27 EDT , Tibia/Fibula X-Ray 03/17/24 14:31 IMPRESSION: Negative right tibia and fibula x-rays. Electronically Signed: Dann Crisostomo MD at 15:23 EDT , D/C Instructions Discharge Diet: Low fat / Low cholesterol Call your doctor if you observe: Fever of 101 or Higher, Shortness of breath, Dizziness, Fainting spells, Swelling in the ankles, Chest pain and Increased palpitations (irregular heartbeat) Meaningful Use Info Meaningful Use Meaningful Use Diagnoses (Choose all that apply): None applicable Ischemic Stroke Statin Dosing Therapy Reference: STATIN DOSE THERAPY REFERENCE: * Patients > 75 years receive moderate or high dose statin therapy. * Patients 75 years or YOUNGER should receive HIGH intensity statin dose unless contraindicated. You will be required to document reason for non-treatment if statin daily dose does not meet guidelines. HIGH DOSE STATIN THERAPY DAILY Atorvastatin > than or = to 40 mg Rosuvastatin > than or = to 20 mg Amlodipine + Atorvastatin > than or = to 2.5/40 mg Ezetimibe + Simvastatin 10/80 mg Simvastatin 80mg Discharge Plan Admission Admit Date/Time: 03/15/24 16:08 Attending Provider: Sukhi Tang Primary Care Provider: Care Physician,No Primary Consulting Providers: Sunni Dutton; Dejah Mcbride Discharge Orders/Prescriptions Prescriptions: New folic acid 1 mg Tablet 1 mg PO DAILYCM 30 Days Qty: 30 0RF Continued bupropion HCl 150 mg tablet sustained-release 12 hr 150 mg PO BID levothyroxine 75 mcg tablet 75 mcg PO DAILY furosemide 20 mg tablet 20 mg PO DAILY fluticasone propionate 50 mcg/actuation spray,suspension 1 spray INTRANASAL BID lactulose 10 gram/15 mL solution 15 ml PO TID magnesium 200 mg tablet 400 mg PO DAILY melatonin 10 mg capsule 10 mg PO DAILY potassium chloride 10 mEq tablet extended release 20 meq PO BID propranolol 20 mg tablet 20 mg PO DAILY spironolactone 50 mg tablet 50 mg PO DAILY Xifaxan 550 mg tablet 550 mg PO BID thiamine HCl (vitamin B1) 100 mg tablet 100 mg PO DAILY sertraline 100 mg tablet 200 mg PO Q24H Incruse Ellipta 62.5 mcg/actuation blister with device 1 inh inhalation DAILY pantoprazole 40 mg tablet,delayed release (DR/EC) 40 mg PO DAILY Referrals / Follow Up: Care Physician,No Primary [Primary Care Provider] - Disposition Disposition (needs filled in before D/C Order can be placed): Home, Self Care Charges/Coding Visit Charges Inpatient E&M: 41564 Disch Hosp >30min
[2024-03-18 15:06] VITALS: BP 117/74; PULSE 78; RESP 16; TEMP 37.1; O2SAT 98
--- NOTE | 2024-03-18 18:11 | PN.HOSP_ITS ---
Subjective Subjective Doing well, initial plan was for discharge today to inpatient rehab however the inpatient rehab facility states that it was never set up despite having been set up over the weekend Objective Data Objective Data Vital Signs: Vital Signs Temp Pulse Resp BP Pulse Ox O2 Del Method 99.2 F H 80 18 108/70 96 Room Air 03/18/24 09:06 03/18/24 09:06 03/18/24 09:06 03/18/24 09:06 03/18/24 09:06 03/18/24 09:06 Oxygen Delivery Method Room Air Weight: 158 lb 9.6 oz Body Mass Index (BMI) 27.2 Intake & Output: Intake and Output for Last 24 Hours 03/17/24 03/18/24 03/19/24 03:59 03:59 03:59 Intake Total 600 / 600 400 / 400 Balance 600 / 600 400 / 400 Lab / Micro Data 03/15/24 15:15 03/16/24 06:05 Physical Exam Narrative General: Alert, Oriented x3, Cooperative, No apparent distress HEENT: Atraumatic, PERRLA, EOMI, Normocephalic Oral: Moist Mucosa Neck: Supple, No JVD Lungs: Diminished, Normal air movement, No rhonchi, No wheeze, No rales Cardiovascular: Regular rate, Regular Rhythm, Normal S1, Normal S2, No murmurs Abdomen: Soft, Non Tender, Non-Distended, No Hepato-splenomegaly Extremities: No edema, Capillary Refill Less than 3 Seconds Skin: No rashes, No breakdown Musculoskeletal: No Tenderness to Palpation of Joints or Extremities Neurological: No focal neurological deficits, Motor Exam 5/5 strength throughout, Sensory exam intact to light touch and pain Psych/Mental Status: Normal Affect, Appropriate Assessment & Plan Assessment/Plan (1) Desire for detoxification: (2) Alcohol dependence: PLAN: Plan #Acute alcohol withdrawal * patient on alcohol withdrawal protocol with phenbarbital * on thiamine, folic acid and multivites. * adjunctive meds for symptomatic relief. * Plan for inpatient discharge to rehab tomorrow #Alcoholic liver cirrhosis/chronic thrombocytopenia * on rifaximin, lactulose, propranolol, lasix and spironolactone. * to follow up with GI on outpatient basis. Counseled to quit smoking. #COPD with allergic rhinitis: on breathing treatment with bronchodilators. #History of small cell right lung carcinoma: s/p radiation and chemotherapy. #Hypertension; on lasix, spironolactone and propranolol. IV hydralazine prn #Hyperlipidemia: not on statin. Follow up with PCP on outpatient basis. #Anxiety and depression: on sertraline and bupropion #Hypothyroidism:on synthroid. #Nicotine dependence: counseled to quit. On nicotine patch prn DVT: Ambulation Charges/Coding Visit Charges Inpatient E&M: 22692 Subs Hosp L2
[2024-03-18 22:55] VITALS: BP 101/65; PULSE 72; RESP 16; TEMP 36.4; O2SAT 99
[2024-03-18] MEDS: MELATONIN 10 MG TABLET PO (22:56)
[2024-03-19] MEDS: Phenobarbital 32.4 MG Tablet PO ×4 (02:54→20:48)
[2024-03-19 03:04] VITALS: BP 101/67; PULSE 66; RESP 16; TEMP 36; O2SAT 97
[2024-03-19] MEDS: Lactulose 20 GM/30 ML UDC 10 GM PO ×3 (05:34→20:48)
[2024-03-19] MEDS: Levothyroxine 75 MCG Tablet PO (05:34)
--- NOTE | 2024-03-19 08:54 | PCM.PN.HOSP ---
Subjective Subjective No issues overnight, CIWA score 0 Objective Data Objective Data Vital Signs: Vital Signs Temp Pulse Resp BP Pulse Ox O2 Del Method 96.8 F L 66 16 101/67 97 Room Air 03/19/24 03:04 03/19/24 03:04 03/19/24 03:04 03/19/24 03:04 03/19/24 03:04 03/19/24 03:04 Oxygen Delivery Method Room Air Weight: 158 lb 9.6 oz Body Mass Index (BMI) 27.2 Intake & Output: Intake and Output for Last 24 Hours 03/18/24 03/19/24 03/20/24 03:59 03:59 03:59 Intake Total 400 / 400 1200 / 1200 Output Total 200 / 200 Balance 400 / 400 1000 / 1000 Lab / Micro Data 03/15/24 15:15 03/16/24 06:05 Physical Exam Narrative General: Alert, Oriented x3, Cooperative, No apparent distress HEENT: Atraumatic, PERRLA, EOMI, Normocephalic Oral: Moist Mucosa Neck: Supple, No JVD Lungs: Diminished, Normal air movement, No rhonchi, No wheeze, No rales Cardiovascular: Regular rate, Regular Rhythm, Normal S1, Normal S2, No murmurs Abdomen: Soft, Non Tender, Non-Distended, No Hepato-splenomegaly Extremities: No edema, Capillary Refill Less than 3 Seconds Skin: No rashes, No breakdown Musculoskeletal: No Tenderness to Palpation of Joints or Extremities Neurological: No focal neurological deficits, Motor Exam 5/5 strength throughout, Sensory exam intact to light touch and pain Psych/Mental Status: Normal Affect, Appropriate Assessment & Plan Assessment/Plan (1) Desire for detoxification: (2) Alcohol dependence: PLAN: Plan 1. Acute alcohol withdrawal with alcoholic liver cirrhosis and chronic thrombocytopenia/anxiety/depression ? Continue with the alcohol withdrawal protocol ? Will attempt to get into an inpatient rehab unsure what happened with the [facility] ?Will monitor thrombocytopenia ? Continue with her home cirrhotic medications 2. 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 Discussed tobacco cessation ? Continue with inhalers 3. Hypothyroidism ? Stable ? Continue with Synthroid DVT: Ambulation Charges/Coding Visit Charges Inpatient E&M: 70203 Subs Hosp L2
[2024-03-19 09:29] VITALS: BP 98/61; PULSE 78; RESP 16; TEMP 36.7; O2SAT 95
[2024-03-19] MEDS: Potassium Chloride Oral Tablet 20 MEQ PO ×2 (09:33→16:28)
[2024-03-19] MEDS: Folic Acid 1 MG Tablet PO (09:33)
[2024-03-19] MEDS: Magnesium Chloride 64 MG Delay Rel.Tablet 128 MG PO (09:33)
[2024-03-19] MEDS: Multivitamins,Ther W-Minerals Tablet 1 TABLET PO (09:34)
[2024-03-19] MEDS: Thiamine Hydrochloride 100 MG Tablet PO (09:34)
[2024-03-19] MEDS: rifAXIMin 550 MG Tablet PO ×2 (09:37→20:49)
[2024-03-19] MEDS: Fluticasone 0.05% 1 SPRAY NASAL.SRY NASAL ×2 (09:39→20:48)
[2024-03-19] MEDS: Sertraline 100 MG Tablet 200 MG PO (10:48)
[2024-03-19] MEDS: buPROPion (SR) 150 MG Tablet.SA PO ×2 (10:48→20:49)
--- NOTE | 2024-03-19 11:23 | CASEMGMT ---
Addendum entered by Shanti Wood 03/19/24 15:33: Social Work Pt's daughter called back she did not receive the SNF list, SW forwarded it again. Daughter aware of facilities in the area, asked for [facility] be sent [facility] [place] D/C capacity planning manager will send the referrals. SHANNON Schwartz Addendum entered by Shanti Wood 03/19/24 14:43: Social Work [facility] [place] cannot take pt. SW called daughter back, message left for additional choices. A list was emailed to daughter earlier today of SNFs from [facility]. SHANNON Schwartz Original Note: Social Work SW met w/pt in room in regard to prior level of function and anticipated discharge plan. Pt initially came in to be part of the [facility] program but is now not able to go to rehab for alcohol use as she is not walking well enough to do so. PCP: Dr. Crain in [place] Specialists: Pt sees a liver doctor, pt cannot remember the name at present. Pharmacy: [facility] in [place] Insurance: Medicare/Medicaid LNOK: Daughterdaly LW/POA: Pt does think she has completed these documents in the past Living arrangements/prior level of function: Pt lives home w/daughter Edith, one story home, a few steps in with a basement. Pt explains is normally able to ambulate w/a cane, daughter helps with cooking, cleaning, medications. Pt states daughter is the substitute bus driver, she does not drive. She states daughter helps a little with showering and dressing. DME: Pt uses a cane at baseline, has a shower chair as well. SW spoke w/pt about options at discharge. She is agreeable to SNF. She is not sure where she would want to go, she states is okay to call her daughter and ask her. SW called daughter Pamela. SW explained pt is not moving well and is going to need a halfway facility to get some physical therapy. Daughter agreeable to pt going a halfway facility for rehab. SW offered to email a list to her, and she is receptive. D/C capacity planning manager Berna will email daughter a list from [facility] of halfway facilities in network w/pt's insurance, in pt's preferred geographic area, and complete w/quality and resource use data. Daughter already aware of [facility] in [place] and would like a referral sent there. D/C capacity planner Berna will send the initial referral to [facility]. SW will follow up w/pt and daughter once we hear from of [place]. Plan: SNF, skilled, facility TBD. SHANNON Schwartz
--- NOTE | 2024-03-19 11:58 | CASEMGMT ---
Addendum entered by Berna Figueroa 03/19/24 14:44: [facility] declined referral. SW updated. Berna Figueroa DC Planning Asst. Original Note: Referral sent to [facility] via [facility]. Awaiting response. Mela Osman, GEOGRAPHIC INFORMATION SYSTEM SURVEYOR, ELECTROCARDIOGRAPH OPERATOR
--- NOTE | 2024-03-19 12:04 | CASEMGMT ---
Electronic Share Method: ? Discharge Planning A list of?SNF providers including quality and resource use data and consistent with the patient's preferred geographic region, medical needs, and insurance network were provided via email to patients daughter from the [employer] link. Berna Figueroa, Discharge Planning Asst.
[2024-03-19] MEDS: Ensure Plus High Protein 120 ML LIQUID PO ×2 (13:02→16:28)
[2024-03-19 14:35] VITALS: BP 102/79; PULSE 72; RESP 16; TEMP 36.5; O2SAT 99
--- NOTE | 2024-03-19 15:39 | CASEMGMT ---
Addendum entered by Berna Figueroa 03/20/24 14:37: [facility] declined. SW updated. Berna Figueroa DC Planning Asst. Addendum entered by Berna Figueroa 03/20/24 10:31: Patient has been accepted by [facility]. Awaiting response from [facility]. SW updated. Berna Figueroa DC Planning Asst. Addendum entered by Berna Figueroa 03/20/24 08:53: [facility] declined referral. Berna Figueroa DC Planning Asst. Addendum entered by Berna Figueroa 03/20/24 08:52: [facility] declined referral. Berna Figueroa DC Planning Asst. Addendum entered by Berna Figueroa 03/20/24 08:46: [facility] declined d/t etoh detox, and [facility] declined d/t not bed availability. Follow up call placed to [facility] who was having difficulty getting into [facility] but stated they would look at it today. VM left for [facility]. New referrals sent to [facility] and [facility]. Berna Figueroa DC Planning Asst. Original Note: Discharge Planning Referral sent via [facility] to [facility], [facility], and [facility]. Berna Figueroa DC Planning Asst.
[2024-03-19 20:19] VITALS: PULSE 76; RESP 18
[2024-03-19] MEDS: Budesonide Respules 0.5 MG/2 ML AMPUL.NEB. INHALATION (20:19)
[2024-03-19] MEDS: MELATONIN 10 MG TABLET PO (20:49)
[2024-03-19] MEDS: Nystatin Powder 15gm Bottle 1 APPLIC TOPICAL (20:57)
[2024-03-19 21:05] VITALS: BP 122/100; PULSE 73; RESP 16; TEMP 36.4; O2SAT 96
[2024-03-20] MEDS: Levothyroxine 75 MCG Tablet PO (06:04)
[2024-03-20] MEDS: Lactulose 20 GM/30 ML UDC 10 GM PO ×2 (06:04→13:27)
[2024-03-20 06:18] VITALS: BP 120/85; PULSE 75; RESP 16; TEMP 36.6; O2SAT 95
[2024-03-20 06:55] VITALS: PULSE 68; RESP 16; O2SAT 94
[2024-03-20] MEDS: Budesonide Respules 0.5 MG/2 ML AMPUL.NEB. INHALATION (06:56)
[2024-03-20] MEDS: Multivitamins,Ther W-Minerals Tablet 1 TABLET PO (08:13)
[2024-03-20] MEDS: Potassium Chloride Oral Tablet 20 MEQ PO (08:13)
[2024-03-20] MEDS: Folic Acid 1 MG Tablet PO (08:13)
[2024-03-20] MEDS: Thiamine Hydrochloride 100 MG Tablet PO (08:14)
[2024-03-20] MEDS: Fluticasone 0.05% 1 SPRAY NASAL.SRY NASAL (08:14)
[2024-03-20] MEDS: Nystatin Powder 15gm Bottle 1 APPLIC TOPICAL (08:15)
[2024-03-20] MEDS: Magnesium Chloride 64 MG Delay Rel.Tablet 128 MG PO (08:15)
[2024-03-20] MEDS: rifAXIMin 550 MG Tablet PO (08:16)
[2024-03-20] MEDS: Sertraline 100 MG Tablet 200 MG PO (08:16)
[2024-03-20] MEDS: buPROPion (SR) 150 MG Tablet.SA PO (08:16)
[2024-03-20 08:20] VITALS: BP 91/73; PULSE 65; RESP 16; TEMP 36.5; O2SAT 98
[2024-03-20] MEDS: Ensure Plus High Protein 120 ML LIQUID PO ×2 (08:22→12:01)
--- NOTE | 2024-03-20 09:07 | PCM.PN.HOSP ---
Subjective Subjective Doing well, no issues overnight. Evaluated by PT/OT and looking at SNF placement Objective Data Objective Data Vital Signs: Vital Signs Temp Pulse Resp BP Pulse Ox O2 Del Method 97.7 F L 65 16 91/73 98 Room Air 03/20/24 08:20 03/20/24 08:20 03/20/24 08:20 03/20/24 08:20 03/20/24 08:20 03/20/24 08:20 Oxygen Delivery Method Room Air Weight: 158 lb 9.6 oz Body Mass Index (BMI) 27.2 Intake & Output: Intake and Output for Last 24 Hours 03/19/24 03/20/24 03/21/24 03:59 03:59 03:59 Intake Total 1200 / 1200 950 / 950 Output Total 200 / 200 200 / 200 Balance 1000 / 1000 750 / 750 Lab / Micro Data 03/15/24 15:15 03/16/24 06:05 Physical Exam Narrative General: Alert, Oriented x3, Cooperative, No apparent distress HEENT: Atraumatic, PERRLA, EOMI, Normocephalic Oral: Moist Mucosa Neck: Supple, No JVD Lungs: Diminished, Normal air movement, No rhonchi, No wheeze, No rales Cardiovascular: Regular rate, Regular Rhythm, Normal S1, Normal S2, No murmurs Abdomen: Soft, Non Tender, Non-Distended, No Hepato-splenomegaly Extremities: No edema, Capillary Refill Less than 3 Seconds Skin: No rashes, No breakdown Musculoskeletal: No Tenderness to Palpation of Joints or Extremities Neurological: No focal neurological deficits, Motor Exam 5/5 strength throughout, Sensory exam intact to light touch and pain Psych/Mental Status: Normal Affect, Appropriate Assessment & Plan Assessment/Plan (1) Desire for detoxification: (2) Alcohol dependence: PLAN: Plan 1. Acute alcohol withdrawal with alcoholic liver cirrhosis and chronic thrombocytopenia/anxiety/depression ? Continue with the alcohol withdrawal protocol ? Will attempt to get into an inpatient rehab unsure what happened with [facility] ?Will monitor thrombocytopenia ? Continue with her home cirrhotic medications 2. 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 Discussed tobacco cessation ? Continue with inhalers 3. Hypothyroidism ? Stable ? Continue with Synthroid DVT: SCD Charges/Coding Visit Charges Inpatient E&M: 34826 Subs Hosp L2
[2024-03-20 09:28] VITALS: BP 91/73; PULSE 65; RESP 16; TEMP 36.5; O2SAT 98
[2024-03-20 09:52] LABS: Vitamin B12 357 pg/mL (211-911)
[2024-03-20 11:45] VITALS: BP 90/66; PULSE 83; RESP 16; TEMP 36.3; O2SAT 96
[2024-03-20 13:53] VITALS: BP 116/65; PULSE 81; RESP 16; TEMP 36.8; O2SAT 97
--- NOTE | 2024-03-20 14:57 | PCM.TXEXTCAR ---
Diet Diet Order/Speech Therapy: 03/15/24 17:03 Diet: Regular - General Food consistency:: Regular Liquid Consistency:: Regular/Thin Diet Comments: With snacks three times daily as tolerated Routine Orders/Code Status Routine Lab Work: CBC and BMP Code Status: Full Code Therapies Physical Therapy: Eval and Treat Occupational Therapy: Eval and Treat Problem/Diagnosis (1) Desire for detoxification: Status: Acute (2) Alcohol dependence: Status: Acute Code(s): F10.20 - Alcohol dependence, uncomplicated Plan 1. Acute alcohol withdrawal with alcoholic liver cirrhosis and chronic thrombocytopenia/anxiety/depression ? Continue with the alcohol withdrawal protocol ? Will attempt to get into an inpatient rehab unsure what happened with [facility] ?Will monitor thrombocytopenia ? Continue with her home cirrhotic medications 2. 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 Discussed tobacco cessation ? Continue with inhalers 3. Hypothyroidism ? Stable ? Continue with Synthroid DVT: SCD Allergies/Procedures Done in Hospital Allergies No Known Allergies Allergy (Verified 03/15/24 14:44) Procedures: None Type of Care/Length of Stay Estimated LOS: Convalescent Care Less Than 30 days Type of Care Needed: Skilled Rehab Potential: Good Prognosis: Good Additional Orders/Day of Discharge Day of Discharge: 03/20/24 Dietary and Speech Recommendations Dietitian Recommendations/Changes: Continue with Regular diet and EPHP 120mL TID w/ medpass at this time. Will continue to follow, monitor oral intakes and tolerance to ONS, and modify interventions as needed. Discharge Plan Admission Admit Date/Time: 03/15/24 16:08 Attending Provider: Sukhi Tang Primary Care Provider: Care Physician,No Primary Consulting Providers: Sunni Dutton; Dejah Mcbride Discharge Orders/Prescriptions Prescriptions: New folic acid 1 mg Tablet 1 mg PO DAILYCM 30 Days Qty: 30 0RF Continued bupropion HCl 150 mg tablet sustained-release 12 hr 150 mg PO BID levothyroxine 75 mcg tablet 75 mcg PO DAILY furosemide 20 mg tablet 20 mg PO DAILY fluticasone propionate 50 mcg/actuation spray,suspension 1 spray INTRANASAL BID lactulose 10 gram/15 mL solution 15 ml PO TID magnesium 200 mg tablet 400 mg PO DAILY melatonin 10 mg capsule 10 mg PO DAILY potassium chloride 10 mEq tablet extended release 20 meq PO BID propranolol 20 mg tablet 20 mg PO DAILY spironolactone 50 mg tablet 50 mg PO DAILY Xifaxan 550 mg tablet 550 mg PO BID thiamine HCl (vitamin B1) 100 mg tablet 100 mg PO DAILY sertraline 100 mg tablet 200 mg PO Q24H Incruse Ellipta 62.5 mcg/actuation blister with device 1 inh inhalation DAILY pantoprazole 40 mg tablet,delayed release (DR/EC) 40 mg PO DAILY Referrals / Follow Up: Care Physician,No Primary [Primary Care Provider] - Disposition Disposition (needs filled in before D/C Order can be placed): Residential Facility
--- NOTE | 2024-03-20 15:13 | CASEMGMT ---
Social Work Pt has been accepted at [facility]. Pt denied admission at [facility], [facility], [facility], [facility], [place] and [facility]. SW met with pt and introduced self and role of SW. SW updated pt on above and informed pt that dgt would be updated. Phone call to pt dgt Pamela and discharge plan discussed. Pamela agreeable for pt to discharge to [facility]. Physician updated and pt is ready for dc today. 7000 exemption form completed in [facility]. DC preschool teacher assistant updated and to complete dc. Disposition: [facility], skilled level of care under convalescent stay LONDON Vu
--- NOTE | 2024-03-20 15:39 | CASEMGMT ---
Discharge Planning Discharge orders, signed med list, and transport time sent to [facility] [place] via [facility]. Physicians will transport patient by cot at 4:30p. Nursing, SW, and patients daughter (Pamela) updated. Berna Figueroa DC Planning Asst.
== END 2024-03-20 18:10 | disposition skilled nursing facility (03) | DRG 897 ==
LOC: ED 16:15 → MS3 16:22
PROVIDERS: Admitting Provider Family Medicine; Emergency Provider Emergency Medicine; Visit Provider Family Medicine
DX: F10.239 Alcohol dependence with withdrawal, unspecified (principal); D69.6 Thrombocytopenia, unspecified; K70.30 Alcoholic cirrhosis of liver without ascites; J44.9 Chronic obstructive pulmonary disease, unspecified; E03.9 Hypothyroidism, unspecified; I10 Essential (primary) hypertension; F32.A Depression, unspecified; F12.90 Cannabis use, unspecified, uncomplicated; J30.9 Allergic rhinitis, unspecified; E78.5 Hyperlipidemia, unspecified; F41.9 Anxiety disorder, unspecified; Z79.899 Other long term (current) drug therapy; Z87.891 Personal history of nicotine dependence; Y90.5 Blood alcohol level of 100-119 mg/100 ml
CPT/HCPCS: 36415; 73502; 73590; 80053; 80307; 80320; 82607; 83735; 84100; 85025; 85610; 94640; 97162; 97167; 97802; 99283; A4216; G0480